=== PATIENT | female | born 1940 | race Caucasian/White ===

== ENCOUNTER 2016-08-29 23:53 | Inpatient (IN) | payer MEDICARE ==
[2016-08-29] MEDS ORDERED: TUSSIONEX 5 ML ORAL SYRINGE PO ONE (23:58)
[2016-08-29] MEDS ORDERED: Albuterol/Ipratropium Neb 3 ML NEB NEB ONE (23:58)
--- NOTE | 2016-08-30 00:01 | EDPRACDOC ---
- General Information Chief Complaint: Dyspnea/Resp distress Stated Complaint: RESPIRATORY Time Seen by Provider: 08/29/16 23:55 Home Medications: Home Medications Pantoprazole Sodium [Protonix] 40 mg PO DAILY 07/21/12 Glimepiride [Amaryl] 4 mg PO BID(LAISHA) 08/30/13 Nitroglycerin [Nitrostat] 0.4 mg SL Q5MX3 PRN 08/22/14 Albuterol Sulfate [Proventil Hfa] 2 puff INH Q6H PRN 09/14/14 Albuterol/Ipratropium Neb [Duoneb] 3 ml NEB Q6H PRN 09/14/14 Folic Acid 0.8 mg PO DAILY 09/14/14 Insulin Detemir [Levemir Flextouch] 20 units SQ HS 09/14/14 Levothyroxine Sodium [Synthroid] 25 mcg PO DAILY 09/14/14 Vitamins, Multiple [Unicap] 1 cap PO DAILY 09/14/14 Furosemide [Lasix] 80 mg PO BID #60 tablet 05/28/15 Escitalopram Oxalate [Lexapro] 10 mg PO DAILY 06/12/15 [place]-3 Fatty Acids/Fish Oil [Fish Oil 1,000 mg Capsule] 1 each PO DAILY Rivaroxaban [Xarelto] 15 mg PO DAILYWM 06/12/15 Nystatin 1 applic TOP TID #1 tube 09/12/15 Lisinopril [Prinivil] 2.5 mg PO DAILY #30 tablet 01/04/16 Alprazolam [Xanax] 0.5 mg PO HS 02/07/16 Gabapentin [Neurontin] 100 mg PO TID PRN 02/07/16 Hydrocodone Bit/Acetaminophen [[place] 5-325 Tablet] 1 each PO Q4H #10 tab Levetiracetam [Keppra] 500 mg PO BID 02/07/16 Metoprolol Succinate 50 mg PO HS 02/07/16 Simvastatin [Zocor] 20 mg PO DAILY 02/07/16 Vitamin E 400 unit PO DAILY 02/07/16 Clopidogrel Bisulfate [Plavix] 1 PO DAILY 08/09/16 Magnesium Oxide [Magnesium] 400 mg PO BID #60 tablet 08/09/16 Potassium Chloride 20 meq PO BID #120 tablet.er 12/11/16 Allergies/Adverse Reactions: Allergies Allergy/AdvReac Type Severity Reaction Status Date / Time cephalexin monohydrate Allergy Unknown/See Verified 08/09/16 03:50 [From Keflex] Comments codeine Allergy Itching Verified 08/09/16 03:50 moxifloxacin HCl Allergy Anaphylaxis Verified 08/09/16 03:50 [From Avelox] * Sulfa (Sulfonamide Allergy Unknown Verified 08/09/16 03:50 Antibiotics) sulfamethoxazole Allergy Unknown Verified 08/09/16 03:50 [From Bactrim] trimethoprim Allergy Unknown/See Verified 08/09/16 03:50 Comments - History of Present Illness HPI: PATIENT PRESENTS C/O COUGH AND CONGESTION FOR DAYS. NOW WITH LEFT FLANK PAIN- WORSE WITH COUGH. SUBJECTIVE FEVERS. HX OD COPD. USING INHALER. COUGH PRODUCTIVE OF WHITE SPUTUM Shortness of Breath: Moderate Relevant History: Reports: COPD Cough: Reports: Productive, White Rhinorrhea: Reports: None Ear Symptoms: Reports: None SOB Worsens with: Reports: Exertion, Coughing SOB Improves with: Reports: Nothing Associated Signs and symptoms: Reports: Cough, Fever. Denies: Sore Throat, Vomiting, AMS ED Past Medical History - History Reviewed Yes Nurses notes reviewed and agree except as marked Travel Outside of [place] in the Last 3 Months?: No - Patient Medical History Neurological History: Reports: Cerebrovascular Accident (May 2013 involving right MCA territory) Cardiac History: Reports: Coronary Artery Disease, Atrial Fibrillation (Chronic chads 2 score equals 7. On Xarelto.), Hypertension, Congestive Heart Failure ( ECHO 07/2015: EF 35%. Systolic. Also depressed RV function.), Heart Attack, Cardiac Catheterization, CABG (2013 1 vessel saphenous vein graft and repair LV rupture), Hypercholesterolemia, Cardiomyopathy (and elevated pulmonary artery pressure at 36 mmHg.), Valvular Heart Disease (Moderate Mitral regurgitation.) Respiratory History: Reports: Asthma, COPD GI/ History: Reports: Renal Disease (CKD. Baseline Cr 1.2 to 1.7.), Renal Failure, Urinary Tract Infection, Gastroesophageal Reflux Musculoskeletal History: Reports: Arthritis Psychological History: Reports: Depression, Anxiety. Denies: Substance Use Disorder Systemic History: Reports: Cancer (SKIN), Anemia, Diabetes (Type 2), Hyperthyroidism Surgical History: Reports: Cholecystectomy, CABG (2013 1 vessel saphenous vein graft and repair LV rupture), Hysterectomy, Cardiac Catheterization, Tonsillectomy/Adnoidectomy - Family Medical History Reports: Hypertension, Diabetes (Mother and Father. MGM.), Cancer, Stroke, Cardiac Disorders (Mother: [place] early. Brother, sister, niece all with MIs.) - Social Medical History Smoking Status: Former smoker (Quit 2002. Previously 2-3 ppd. Started 31yo.) Social History: Denies: Substance Use Disorder ETOH: None Substance Abuse: None Lives With: Family Lives In: Home EDM Review of Systems - Review of Systems ROS Negative Except as Marked: Yes All systems reviewed and were negative except as marked Constitutional: No Symptoms Reported. negative: Fever, Chills, Weakness, Fatigue, Loss of Appetite Eyes: No Symptoms Reported. negative: Redness, Blurred Vision, Double Vision, Discharge, Pain, Light Sensitive, Photophobia Ears: No Symptoms Reported. negative: Pain, Hearing Loss, Drainage, Ear Pulling Throat: No Symptoms Reported. negative: Pain, Swelling Nose: No Symptoms Reported. negative: Congestion, Bleeding, Discharge, Injection, Swelling, Deformity, Ecchymosis, Tender, Abrasion, Laceration Mouth: No Symptoms Reported. negative: Pain, Drooling Respiratory: Cough, Shortness of Breath. negative: Barky Cough, Brassy Cough, Hemoptysis, Wheezing Cardiovascular: No Symptoms Reported. negative: Chest Pain, Palpitations, Syncope, Edema, Orthopnea, PND, Skin Mottling, Cyanosis Gastrointestinal: No Symptoms Reported. negative: Pain, Constipation, Nausea, Vomiting, Diarrhea, Melena, Formula Intolerance Genitourinary: No Symptoms Reported. negative: Dysuria, Hematuria, Frequency, Discharge, Bleeding, Testicular Pain, Neurological: No Symptoms Reported. negative: Headache, Dizziness, Seizure, Numbness, Weakness, Speech Difficulty, Gait Difficulty Musculoskeletal: No Symptoms Reported. negative: Neck, Chestwall, Ribs, Back, Shoulder, Arm, Elbow, Forearm, Wrist, Hand, Pelvis, Hip, Femur, Knee, Leg, Ankle , Foot Integumentary: No Symptoms Reported. negative: Itching, Rash, Bruising, Wound Allergic/Immunologic: No Symptoms Reported. negative: Hives, Itching Hematologic: No Symptoms Reported. negative: Lymphadenopathy, Easy Bruising, Easy Bleeding Endocrine: No Symptoms Reported. negative: Weight Gain, Weight Loss Psychiatric: No Symptoms Reported. negative: Anxiety, Depression, Hallucinations, Insomnia, Suicidal - Physical Exam Constitutional: Alert (Awake), Distress (M ILD) Oriented to: Time, Person, Place Last recorded Vital Signs: Oxygen Pulse Oxygen Saturation O2 Device Oxygen Flow Rate Fraction of Inspired Oxygen ( FIO2) - HEENT Head: Normal ( normocephalic) Eye Exam: Normal (PERRL, EOMI, Sclera white) Oropharynx: Normal (Pharynx:Moist without exudate,Gums-no swelling) Tympanic Membrane: Normal ENT EAC: Normal TMJ: Normal Nose: No Symptoms Reported (septum midline) Neck: Normal (FROM, trachea at midline) - Respiratory/Cardiovascular Respiratory: Diminished, Wheezes Cardiovascular: Tachycardia - GI Auscultation: Normal (NABS) Palpation: Normal (Soft,No rebound or guarding, non distended) Tenderness: Non tender Varela's Sign: Negative - Musculoskeletal Back: Normal (Non-Tender) Extremities: Normal (Normal tone, Pulses 2+ No cyanosis or edema, FROM) - Integumentary Skin: Normal, Warm, Dry Lymphatics: Normal (no adenopathy) - Neurologic Memory Impaired: Normal Motor Function: Normal (Normal tone, Pulses 2+ No cyanosis or edema, FROM) Cranial Nerve: Normal (CN II-X11 intact sensation, strength 5/5) Cerebellar: Normal Mood Description: Normal Perception: Normal ED SOB MDM - Results Result Diagrams: 08/30/16 00:20 08/30/16 00:20 - EKG EKG #1 EKG Time: 00:21 -: Yes EKG interpreted by me Rate: bpm: 108 Abrams: Normal Rhythm: ST, PVCs Block: IVCD Hypertrophy: None ST: Normal - Departure Yes I personally saw and evaluated the patient. Disposition: Admit IP To This Hospital Condition: Fair Final Diagnosis: Hypoxia Left lower lobe pneumonia Qualifiers: Pneumonia type: due to unspecified organism Qualified Code(s): J18.1 - Lobar pneumonia, unspecified organism Education/Counseling Given To: Patient Education/Counseling Given Regarding: Diagnosis, Treatment, Prognosis Decision to Admit Time: 01:30 Decision to admit date: 08/30/16 Decision to admit: from ED - Physician Consulted Hospitalist Time Called: 01:31 Provider Called: Mateo Lloyd Time Agricultural Specialist Returned Call: 01:31
[2016-08-30 00:17] LABS: ALLEN'S TEST PASS; BEb 10.3 (+/- 2); TCO2 36.5 MMOL/L (23-27)
[2016-08-30 00:18] LABS: ABG Draw Site Left Radial; ABG Draw Tech BKL
[2016-08-30 00:40] LABS: AUTOMATED EOSINOPHIL 0.3 % (0-5); MPV 8.5 fL (7.4-10.4)
[2016-08-30 00:50] LABS: AUTOMATED BASOPHIL 0.6 % (0-2); AUTOMATED LYMPH 12.5 % (17-44); AUTOMATED MONOCYTE 8.5 % (3-10); AUTOMATED NEUTROPHIL 78.1 % (45-76); BLOOD UREA NITROGEN 44 MG/DL (7-17); CALC CORRECTED 9.3 MG/DL (8.4-10.2); CALCULATED OSMOLALITY 279 MOs/Kg (270-290); CHLORIDE 92 mEq/L (98-107); GLUCOSE 179 MG/DL (70-99); SODIUM LEVEL 137 mEq/L (137-146); TOTAL PROTEIN 7.1 G/DL (6.3-8.2)
[2016-08-30 00:57] LABS: PARTIAL THROMB. TIME 32.8 SEC (22-35); PT-INR 1.3
--- NOTE | 2016-08-30 01:11 | DIRPT ---
CLINICAL DATA: Acute onset of cough and congestion. Initial encounter. EXAM: CHEST 2 VIEW COMPARISON: Chest radiograph and CTA of the chest performed 08/09/2016 FINDINGS: The lungs are well-aerated. Mild vascular congestion is noted. Mild patchy bibasilar and left midlung opacities raise concern for mild pneumonia. No pleural effusion or pneumothorax is seen. The heart is borderline normal in size. The patient is status post median sternotomy. No acute osseous abnormalities are seen. IMPRESSION: Mild vascular congestion noted. Mild patchy bibasilar and left mid lung opacities raise concern for mild pneumonia. Electronically Signed By: Ronny Lowe M.D. On: 08/30/2016 01:08
[2016-08-30] MEDS ORDERED: AZITHROMYCIN 250 MG TAB PO ONE (01:31)
[2016-08-30] MEDS ORDERED: PIPERACILLIN AND TAZOBACTAM 4.5 GM in D5W 100 ML IV ONE (01:57)
--- NOTE | 2016-08-30 01:59 | HISTPHYS ---
- Chief Complaint shortness of breath - History of Present Illness PRIMARY CARE PROVIDER: Dr. Jennifer Hoskins OIL EXTRACTOR: Dr. Robles HPI: The patient is a 76 yo woman with atrial fibrillation who presents with shortness of breath. She was recently in the hospital under observation about 2 weeks ago due to chest pain; she was ruled out for [place] and had a negative stress test. She does not have any chest pain now. Onset: a few days ago. Duration: intermittent. Character: can't get a good breath. Alleviated by: Nothing. Exacerbated by: Nothing. Associated Symptoms: Cough productive of white sputum. Wheezing. Had chills but no fever. No diaphoresis. Patient reports difficulty walking due to generalized weakness in legs. No other symptoms. Treatments: none at home except usual medications. - Medical History Cardiac History: Reports: Coronary Artery Disease, Atrial Fibrillation (Chronic chads 2 score equals 7. On Xarelto.), Hypertension, Congestive Heart Failure ( ECHO 07/2015: EF 35%. Systolic. Also depressed RV function.), Heart Attack, Cardiac Catheterization, CABG (2013 1 vessel saphenous vein graft and repair LV rupture), Hypercholesterolemia, Cardiomyopathy (and elevated pulmonary artery pressure at 36 mmHg.), Valvular Heart Disease (Moderate Mitral regurgitation.) Respiratory History: Reports: Asthma, COPD GI/ History: Reports: Renal Disease (CKD. Baseline Cr 1.2 to 1.7.), Renal Failure, Urinary Tract Infection, Gastroesophageal Reflux Musculoskeletal History: Reports: Arthritis Systemic History: Reports: Cancer (SKIN), Anemia, Diabetes (Type 2), Hyperthyroidism Neurological History: Reports: Cerebrovascular Accident (May 2013 involving right MCA territory) Psychological History: Reports: Depression, Anxiety. Denies: Substance Use Disorder - Surgical History Reports: Cholecystectomy, CABG (2013 1 vessel saphenous vein graft and repair LV rupture), Hysterectomy, Cardiac Catheterization, Tonsillectomy/Adnoidectomy - Medictions/Allergies Allergies cephalexin monohydrate [From Keflex] Allergy (Verified 08/09/16 03:50) Unknown/See Comments codeine Allergy (Verified 08/09/16 03:50) Itching moxifloxacin HCl [From Avelox] Allergy (Verified 08/09/16 03:50) Anaphylaxis* Sulfa (Sulfonamide Antibiotics) Allergy (Verified 08/09/16 03:50) Unknown sulfamethoxazole [From Bactrim] Allergy (Verified 08/09/16 03:50) Unknown trimethoprim Allergy (Verified 08/09/16 03:50) Unknown/See Comments Current Medication List: Reviewed Home Medications Pantoprazole Sodium [Protonix] 40 mg PO DAILY 07/21/12 Glimepiride [Amaryl] 4 mg PO BID(LAISHA) 08/30/13 Nitroglycerin [Nitrostat] 0.4 mg SL Q5MX3 PRN 08/22/14 Albuterol Sulfate [Proventil Hfa] 2 puff INH Q6H PRN 09/14/14 Albuterol/Ipratropium Neb [Duoneb] 3 ml NEB Q6H PRN 09/14/14 Folic Acid 0.8 mg PO DAILY 09/14/14 Insulin Detemir [Levemir Flextouch] 20 units SQ HS 09/14/14 Levothyroxine Sodium [Synthroid] 25 mcg PO DAILY 09/14/14 Vitamins, Multiple [Unicap] 1 cap PO DAILY 09/14/14 Furosemide [Lasix] 80 mg PO BID #60 tablet 05/28/15 Escitalopram Oxalate [Lexapro] 10 mg PO DAILY 06/12/15 [place]-3 Fatty Acids/Fish Oil [Fish Oil 1,000 mg Capsule] 1 each PO DAILY Rivaroxaban [Xarelto] 15 mg PO DAILYWM 06/12/15 Nystatin 1 applic TOP TID #1 tube 09/12/15 Lisinopril [Prinivil] 2.5 mg PO DAILY #30 tablet 01/04/16 Alprazolam [Xanax] 0.5 mg PO HS 02/07/16 Gabapentin [Neurontin] 100 mg PO TID PRN 02/07/16 Hydrocodone Bit/Acetaminophen [[place] 5-325 Tablet] 1 each PO Q4H #10 tab Levetiracetam [Keppra] 500 mg PO BID 02/07/16 Metoprolol Succinate 50 mg PO HS 02/07/16 Simvastatin [Zocor] 20 mg PO DAILY 02/07/16 Vitamin E 400 unit PO DAILY 02/07/16 Clopidogrel Bisulfate [Plavix] 1 PO DAILY 08/09/16 Magnesium Oxide [Magnesium] 400 mg PO BID #60 tablet 08/09/16 Potassium Chloride 20 meq PO BID #120 tablet.er 08/09/16 - Family History Reports: Hypertension, Diabetes (Mother and Father. MGM.), Cancer, Stroke, Cardiac Disorders (Mother: [place] early. Brother, sister, niece all with MIs.) - Social History Smoking Status: Former smoker (Quit 2002. Previously 2-3 ppd. Started 31yo.) Social History: Denies: Alcohol Use, Substance Use Disorder - Review of Systems GENERAL: Had chills but no fever. No diaphoresis. Positive for fatigue/malaise. HEENT: No ear pain or discharge. No nasal discharge or bleeding. No throat pain or swelling. No eye pain or eye redness. RESPIRATORY: Cough, wheezing, and shortness of breath. CARDIOVASCULAR: No chest pain or palpitations. GI: No abdominal pain, nausea, vomiting, diarrhea, constipation, or bloody stool. NEUROLOGICAL: No headache or focal weakness except bilateral leg weakness. INTEGUMENT: no rashes, itching, or lesions. LYMPHATIC SYSTEM: no lymph node swelling or pain. MUSCULOSKELETAL: no new pain or joint swelling. GENITOURINARY: No dysuria or hematuria. ENDOCRINE: No polyuria or polydipsia. HEME: No chronic anemia, bleeding, or easy bruising. - Physical Exam Vital Signs: Initial Vitals Temperature 99.3 F 08/29/16 23:59 Pulse Rate 108 08/29/16 23:59 Respiratory Rate 18 08/29/16 23:59 Blood Pressure 139/60 08/29/16 23:59 Pulse Oxygen Saturation 88 L 08/29/16 23:59 Weight: 102 kg Height: 5 feet 7 inches BMI: 35.2 - Other Exam Other Exam Findings: GENERAL: Ill-appearing, well nourished, in acute distress. HEENT: Normocephalic, atraumatic; pupils equal and round. Nares patent, without discharge or bleeding. No oropharyngeal lesions or erythema. Mucous membranes are dry. NECK: is supple, no masses, trachea midline. RESPIRATORY: Clear to auscultation bilaterally. Chest wall movements are symmetric. No use of accessory muscles to breathe. Minimal scattered wheezing. Decreased breath sounds in the bases bilaterally. No rales. Faint rhonchi. CARDIOVASCULAR: Normal S1, S2. Murmur 3/6 systolic. Irregular. No rubs, or gallops. PMI non-displaced. Carotids: no carotid bruits. Mild tachycardia. DP pulses 2+ bilaterally. GI: soft, nontender, non-distended, normal active bowel sounds. No hepatosplenomegaly. INTEGUMENT: Clean, dry, and intact. No rashes. MUSCULOSKELETAL: Moving all extremities. No cyanosis. No clubbing. Edema: 1+ lower extremity edema bilaterally. NEUROLOGICAL: Cranial nerves 2-12 grossly intact. Motor 4/5 throughout upper extremities, and 2+ to 3/5 in the lower extremities, symmetric. Reflexes: 2+ bilaterally. Babinski: toes downgoing on right and minimally upgoing on the left. Intact Finger to nose. Sensory grossly intact to light touch. Intact rapid alternating movements bilaterally. No pronator drift. PSYCHIATRIC: Fully oriented. Frequently somnolent. Frequently falling asleep during questions and commands. LYMPHATIC: No cervical lymphadenopathy. No supraclavicular lymphadenopathy. - Lab Results Laboratory Tests 08/29/16 08/30/16 08/30/16 00:10 00:20 00:20 WBC 15.3 H RBC 3.66 L Hgb 11.1 L Hct 33.6 L MCV 92 MCH 30.2 MCHC 32.9 L RDW 15.7 H Plt Count 228 MPV 8.5 Neut % (Auto) 78.1 H Lymph % (Auto) 12.5 L [place] % (Auto) 8.5 Eos % (Auto) 0.3 Baso % (Auto) 0.6 Absolute Neuts (auto) 11.93 H Absolute Lymphs (auto) 1.84 PT INR APTT Puncture Site Left radial pH 7.490 H pCO2 46.0 H pO2 58.0 L HCO3 35.1 H Total CO2 36.5 H Base Excess 10.3 H FiO2 % Ra Specimen Drawn By Bkl Sodium 137 Potassium 3.5 Chloride 92 L Carbon Dioxide 35 H Anion Gap 14 BUN 44 H Creatinine 1.50 H Estimated GFR (MDRD) 34 L Glucose 179 H Calculated Osmolality 279 Lactic Acid Calcium 9.0 Corrected Calcium 9.3 Total Bilirubin 1.2 AST 18 ALT 24 Alkaline Phosphatase 61 Troponin I 0.03 [id number]-M-Vavnmakgvqx Pept 3680 H Total Protein 7.1 Albumin 3.7 08/30/16 08/30/16 00:20 00:20 WBC RBC Hgb Hct MCV MCH MCHC RDW Plt Count MPV Neut % (Auto) Lymph % (Auto) [place] % (Auto) Eos % (Auto) Baso % (Auto) Absolute Neuts (auto) Absolute Lymphs (auto) PT 13.1 H INR 1.3 APTT 32.8 Puncture Site pH pCO2 pO2 HCO3 Total CO2 Base Excess FiO2 % Specimen Drawn By Sodium Potassium Chloride Carbon Dioxide Anion Gap BUN Creatinine Estimated GFR (MDRD) Glucose Calculated Osmolality Lactic Acid 1.6 Calcium Corrected Calcium Total Bilirubin AST ALT Alkaline Phosphatase Troponin I Vcf-E-Jcaghpharrz Pept Total Protein Albumin - Diagnostic Findings DIAGNOSTIC DATA: EK bpm. Atrial fibrillation with occasional PVCs. Inferior infarct, age undetermined. Cannot rule out anterior infarct, age undetermined. T-wave inversion in leads 3, AVF. Flat T-wave in leads 1, 2, V4, V5. Reviewed EKG personally. IMAGING: Chest x-ray, viewed personally: EXAM: CHEST 2 VIEW COMPARISON: Chest radiograph and CTA of the chest performed 08/09/2016 FINDINGS: The lungs are well-aerated. Mild vascular congestion is noted. Mild patchy bibasilar and left midlung opacities raise concern for mild pneumonia. No pleural effusion or pneumothorax is seen. The heart is borderline normal in size. The patient is status post median sternotomy. No acute osseous abnormalities are seen. IMPRESSION: Mild vascular congestion noted. Mild patchy bibasilar and left mid lung opacities raise concern for mild pneumonia. - Assessment (1) Bacterial pneumonia J15.9 - UNSPECIFIED BACTERIAL PNEUMONIA Acute Present on Admission: Yes Pneumonia. Severe. Requiring continuous oxygen support. Type: Community acquired pneumonia is most likely, but she could also have healthcare associated pneumonia because she was in the hospital within the last month. Criteria for diagnosis: Chest x-ray suggestive of pneumonia. Likely bacterial. Could be a Gram-negative bacteria. Plan: Sputum culture has been ordered. Treat with IV Zosyn to cover for possible hospital-acquired pneumonia and also because the patient has numerous allergies and our medication options are limited. Monitor oxygen saturation levels. (2) Hypoxia R09.02 - HYPOXEMIA Acute Present on Admission: Yes Plan: Place patient on oxygen by nasal cannula. Increase to Ventimask if no improvement. Monitor oxygen saturation levels. (3) COPD exacerbation J44.1 - CHRONIC OBSTRUCTIVE PULMONARY DISEASE W (ACUTE) EXACERBATION Acute Present on Admission: Yes COPD may also be playing a role in the patient's shortness of breath; however, the main source of her respiratory distress is her pneumonia. Plan: Nebs of Duoneb q 6 hours scheduled and albuterol q 2 hours prn. Sputum culture ordered. IV Zosyn. IV methylprednisolone. Continuous oxygen support. (4) Atrial fibrillation I48.91 - UNSPECIFIED ATRIAL FIBRILLATION Chronic Present on Admission: Yes Currently rate controlled. Plan: Continue metoprolol. Continue Xarelto. (5) Type 2 diabetes mellitus with hyperglycemia E11.65 - TYPE 2 DIABETES MELLITUS WITH HYPERGLYCEMIA Acute Present on Admission: Yes Qualifiers: Diabetes mellitus manager terminal insulin use: with [facility] use Qualified Code( s): E11.65 - Type 2 diabetes mellitus with hyperglycemia; Z79.4 - assisted ( current) use of insulin Plan: Hold oral diabetes medications. Check fingerstick blood sugars q ac and hs. Sliding scale insulin. A1c on 08/09/2016 was 8.8, and urine microalbumin on the same date was 4.1. Case Care Discussed with: Patient, Nursing Staff Total Time: 60 min
[2016-08-30] MEDS ORDERED: GUAIFEN 100 MG-DEXTROMETH 10 MG PER 5 ML PO PRN (05:07)
[2016-08-30] MEDS ORDERED: BISACODYL 5 MG TAB PO PRN (05:07)
[2016-08-30] MEDS ORDERED: GLUCOSE (ORAL GEL) 15 GM TUBE PO PRN (05:07)
[2016-08-30] MEDS ORDERED: SENNA CONCENTRATE TAB PO PRN (05:07)
[2016-08-30] MEDS ORDERED: PROMETHAZINE 25 MG/ML VIAL IV PRN (05:07)
[2016-08-30] MEDS ORDERED: ONDANSETRON HCL 4 MG/2 ML VIAL IV PRN (05:07)
[2016-08-30] MEDS ORDERED: GLUCAGON 1 MG VIAL SQ PRN (05:07)
[2016-08-30] MEDS ORDERED: ALBUTEROL 0.083% 3 ML NEB NEB PRN (05:07)
[2016-08-30] MEDS ORDERED: SIMETHICONE 80 MG TAB PO PRN (05:07)
[2016-08-30] MEDS ORDERED: BENZONATATE 100 MG PERLES PO PRN (05:07)
[2016-08-30] MEDS ORDERED: TEMAZEPAM 15 MG CAP PO PRN (05:07)
[2016-08-30] MEDS ORDERED: ACETAMINOPHEN 325 MG SUPP PR PRN (05:07)
[2016-08-30] MEDS ORDERED: DEXTROSE 25 GM/50 ML PFS IV PRN (05:07)
[2016-08-30] MEDS: NS 1,000 ML IV SCH (05:49)
[2016-08-30] MEDS: METHYLPREDNISOLONE 125 MG/2 ML VIAL IV SCH ×3 (06:01→20:59)
[2016-08-30] MEDS: PANTOPRAZOLE 40 MG TAB PO SCH (06:01)
[2016-08-30] MEDS: REGULAR INSULIN 100 UNITS/ML - 3 ML VIAL SQ SCH ×5 (07:18→20:45)
--- NOTE | 2016-08-30 08:33 | GENMEDPROG ---
Chief Complaint: Pneumonia Subjective Note: Doing well, has no acute complaints. Resting comfortably in her bed on nasal cannula oxygen. Notes Reviewed: Yes Events from last night noted and discussed with Clinical Staff Current Medication List: Reviewed Currently: Reports: Cough, Wheezing - Physical Examination Vital Signs and I&O: Last Vital Signs Temp 98.5 F 08/30/16 06:00 Pulse 93 08/30/16 06:09 Resp 18 08/30/16 06:00 BP 127/60 08/30/16 06:00 Pulse Ox 96 08/30/16 06:00 Oxygen Pulse Oxygen Saturation 96 O2 Device Nasal Cannula Oxygen Flow Rate 2 Fraction of Inspired Oxygen ( FIO2) Intake & Output 08/28/16 08/29/16 08/30/16 08/31/16 06:59 06:59 06:59 06:59 Intake Total 300 Balance 300 Patient's weight 104.689 kg General: Alert, Oriented x3, No acute distress, Well appearing, Well nourished, Other (Normal and appropriate affect) HEENT: EOMI (Sclera white) Neck: Normal Trachea alignment, Normal inspection Lymphatics: Normal (no adenopathy) Respiratory: Diminished, Wheezes Cardiovascular: Regular rate, No Gallops,Rubs/Murmurs GI: Normal bowel sounds, Soft, Non tender (non distended) Extremities/Musculoskeletal: Other (Normal Tone). negative: Edema, Cyanosis Skin: No rashes, No significant lesion Neurological: Cranial Nerves (II-XII intact) Psych/Mental Status: Normal Affect (Fully oriented, [place] and appropriate affect ) Lab/DI/Studies Reviewed: Laboratory Tests 08/29/16 08/30/16 08/30/16 00:10 00:20 00:20 WBC 15.3 H Hgb 11.1 L pH 7.490 H pCO2 46.0 H pO2 58.0 L Potassium 3.5 BUN 44 H Creatinine 1.50 H Troponin I 0.03 - Assessment (1) Bacterial pneumonia Acute J15.9 - UNSPECIFIED BACTERIAL PNEUMONIA Comment/Plan: Pneumonia. Severe. Requiring continuous oxygen support. Type: Community acquired pneumonia is most likely, but she could also have healthcare associated pneumonia because she was in the hospital within the last month. Criteria for diagnosis: Chest x-ray suggestive of pneumonia. Likely bacterial. Could be a Gram-negative bacteria. Plan: Sputum culture has been ordered. Treat with IV Zosyn to cover for possible hospital-acquired pneumonia and also because the patient has numerous allergies and our medication options are limited. Monitor oxygen saturation levels. (2) COPD exacerbation Acute J44.1 - CHRONIC OBSTRUCTIVE PULMONARY DISEASE W (ACUTE) EXACERBATION Comment/Plan: COPD may also be playing a role in the patient's shortness of breath; however, the main source of her respiratory distress is her pneumonia. Plan: Nebs of Duoneb q 6 hours scheduled and albuterol q 2 hours prn. Sputum culture ordered. IV Zosyn. IV methylprednisolone. Continuous oxygen support. (3) Hypoxia Acute R09.02 - HYPOXEMIA (4) Left lower lobe pneumonia Acute J18.1 - LOBAR PNEUMONIA, UNSPECIFIED ORGANISM Qualifiers: Pneumonia type: due to unspecified organism Qualified Code(s): J18.1 - Lobar pneumonia, unspecified organism - Plan Continue present care, treating for community-acquired pneumonia and COPD exacerbation.
[2016-08-30] MEDS: FUROSEMIDE 80 MG TAB PO SCH ×2 (08:44→18:30)
[2016-08-30] MEDS: LISINOPRIL 2.5 MG TAB PO SCH (08:45)
[2016-08-30] MEDS: ESCITALOPRAM OXALATE 10 MG TAB PO SCH (08:47)
[2016-08-30] MEDS: CLOPIDOGREL 75 MG TAB PO SCH (08:47)
[2016-08-30] MEDS: LEVOTHYROXINE 25 MCG (0.025 MG) TAB PO SCH (08:47)
[2016-08-30] MEDS: PIPERACILLIN AND TAZOBACTAM 4.5 GM in D5W 100 ML IV SCH ×2 (08:47→18:29)
[2016-08-30] MEDS: ATORVASTATIN 80 MG TAB PO SCH (08:47)
[2016-08-30] MEDS: RIVAROXABAN 10 MG TAB PO SCH (08:47)
[2016-08-30] MEDS ORDERED: Vaccine Screening Complete SCH (09:00)
[2016-08-30] MEDS ORDERED: Non-Formulary Medication ITEM (Rivaroxaban [Xarelto] 15 MG) PO SCH (09:00)
[2016-08-30] MEDS: Albuterol/Ipratropium Neb 3 ML NEB NEB SCH ×3 (09:27→21:05)
[2016-08-30] MEDS: METOPROLOL (TOPROL-XL) 50 MG TAB PO SCH (21:00)
[2016-08-31] MEDS: Albuterol/Ipratropium Neb 3 ML NEB NEB SCH ×4 (00:58→19:16)
[2016-08-31] MEDS: PIPERACILLIN AND TAZOBACTAM 4.5 GM in D5W 100 ML IV SCH ×2 (03:12→08:48)
[2016-08-31] MEDS: NS 1,000 ML IV SCH (03:12)
[2016-08-31 03:43] LABS: MPV 8.7 fL (7.4-10.4)
[2016-08-31 03:51] LABS: BLOOD UREA NITROGEN 44 MG/DL (7-17); CALCIUM 8.8 MG/DL (8.4-10.2); CALCULATED OSMOLALITY 278 MOs/Kg (270-290); CHLORIDE 89 mEq/L (98-107); GLUCOSE 358 MG/DL (70-99); SODIUM LEVEL 131 mEq/L (137-146)
[2016-08-31] MEDS: METHYLPREDNISOLONE 125 MG/2 ML VIAL IV SCH ×3 (06:01→21:34)
[2016-08-31] MEDS: PANTOPRAZOLE 40 MG TAB PO SCH (06:01)
[2016-08-31] MEDS: REGULAR INSULIN 100 UNITS/ML - 3 ML VIAL SQ SCH ×4 (06:41→21:34)
[2016-08-31] MEDS: CLOPIDOGREL 75 MG TAB PO SCH (08:49)
[2016-08-31] MEDS: LEVOTHYROXINE 25 MCG (0.025 MG) TAB PO SCH (08:49)
[2016-08-31] MEDS: ESCITALOPRAM OXALATE 10 MG TAB PO SCH (08:49)
[2016-08-31] MEDS: ATORVASTATIN 80 MG TAB PO SCH (08:49)
[2016-08-31] MEDS: RIVAROXABAN 10 MG TAB PO SCH (08:50)
[2016-08-31] MEDS: LISINOPRIL 2.5 MG TAB PO SCH (08:50)
--- NOTE | 2016-08-31 09:54 | GENMEDPROG ---
Chief Complaint: Patient states that she used to smoke a long time ago. Subjective Note: States that her granddaughters shabbir lives with her and he smokes in her house and she does not want that. She has asked him to move out but he want. She thinks he is trying to take her money. She requests to go to [facility] for some skilled rehab prior to going home because she is concerned about her lung health with her granddaughters shabbir in the house. She is requesting assistance to try to rid him from her home. Notes Reviewed: Yes Events from last night noted and discussed with Clinical Staff Current Medication List: Reviewed Currently: Reports: Cough, Wheezing - Physical Examination Vital Signs and I&O: Last Vital Signs Temp 97.9 F 08/31/16 07:37 Pulse 88 08/31/16 07:37 Resp 18 08/31/16 07:37 BP 118/64 08/31/16 07:37 Pulse Ox 95 08/31/16 08:36 Oxygen Pulse Oxygen Saturation 95 O2 Device Nasal Cannula Oxygen Flow Rate 2 Fraction of Inspired Oxygen ( FIO2) Intake & Output 08/28/16 08/29/16 08/30/16 08/31/16 23:59 23:59 23:59 23:59 Intake Total 2272 1913 Output Total 250 1100 Balance 2021 813 Patient's weight 104.689 kg 106.866 kg General: Alert, Oriented x3, No acute distress, Well appearing, Well nourished, Other (Normal and appropriate affect) HEENT: EOMI (Sclera white) Neck: Normal Trachea alignment, Normal inspection Lymphatics: Normal (no adenopathy) Respiratory: Diminished, Wheezes Cardiovascular: Regular rate, No Gallops,Rubs/Murmurs GI: Normal bowel sounds, Soft, Non tender (non distended) Extremities/Musculoskeletal: Other (Normal Tone). negative: Edema, Cyanosis Skin: No rashes, No significant lesion Neurological: Cranial Nerves (II-XII intact) Psych/Mental Status: Normal Affect (Fully oriented, [place] and appropriate affect ) Lab/DI/Studies Reviewed: Laboratory Results - last 24 hr 08/30/16 08/30/16 08/30/16 11:20 17:06 20:19 WBC RBC Hgb Hct MCV MCH MCHC RDW Plt Count MPV Sodium Potassium Chloride Carbon Dioxide Anion Gap BUN Creatinine Estimated GFR (MDRD) Glucose POC Capillary Glucose 390 H 423 H* 397 H Calculated Osmolality Calcium 08/31/16 08/31/16 08/31/16 02:35 02:35 06:23 WBC 11.2 H RBC 3.33 L Hgb 10.2 L Hct 31.0 L MCV 93 MCH 30.6 MCHC 32.9 L RDW 15.7 H Plt Count 208 MPV 8.7 Sodium 131 L Potassium 3.9 Chloride 89 L Carbon Dioxide 29 Anion Gap 17 H BUN 44 H Creatinine 1.30 H Estimated GFR (MDRD) 40 L Glucose 358 H POC Capillary Glucose 276 H Calculated Osmolality 278 Calcium 8.8 - Assessment (1) Bacterial pneumonia Acute J15.9 - UNSPECIFIED BACTERIAL PNEUMONIA Comment/Plan: Pneumonia. Severe. Requiring continuous oxygen support. Type: Community acquired pneumonia is most likely, but she could also have healthcare associated pneumonia because she was in the hospital within the last month. Criteria for diagnosis: Chest x-ray suggestive of pneumonia. Likely bacterial. Could be a Gram-negative bacteria. Plan: Keflex allergy is very vague. Patient was confused when this information was recorded in our system. We have no record of her being unable to take Keflex. She has never been given a cephalosporin at our facility. Will give her a test dose of Rocephin today as this will be certainly much easier to dose then Zosyn at a facility. (2) COPD exacerbation Acute J44.1 - CHRONIC OBSTRUCTIVE PULMONARY DISEASE W (ACUTE) EXACERBATION Comment/Plan: COPD may also be playing a role in the patient's shortness of breath; however, the main source of her respiratory distress is her pneumonia. Plan: Nebs of Duoneb q 6 hours scheduled and albuterol q 2 hours prn. Sputum culture ordered. Changed to IV ceftriaxone IV methylprednisolone. Continuous oxygen support. Check ambulating O2 sats today for possible discharge with oxygen. (3) Hypoxia Acute R09.02 - HYPOXEMIA (4) Left lower lobe pneumonia Acute J18.1 - LOBAR PNEUMONIA, UNSPECIFIED ORGANISM Qualifiers: Pneumonia type: due to unspecified organism Qualified Code(s): J18.1 - Lobar pneumonia, unspecified organism Comment/Plan: See chest x-ray report - Plan Try ceftriaxone today. Check ambulating O2 sats. Possible discharge to skilled facility in a.m. per above. Disposition Plan: To skilled facility in a.m. Case Care Discussed with: Patient, Nursing Staff Education/Counseling Given To: Patient Education/Counseling Given Regarding: Diagnosis, Treatment, Prognosis, Follow Up , Disposition Plan Total Time: 45 minutes Critical Care: No Couseling Time (>50% in counseling/coordination): No
[2016-08-31] MEDS: FUROSEMIDE 80 MG TAB PO SCH ×2 (09:58→16:12)
[2016-08-31] MEDS: CEFTRIAXONE 1 GM in D5W 100 ML IV SCH (11:22)
[2016-08-31] MEDS ORDERED: DEXTROSE 25 GM/50 ML PFS IV PRN (17:03)
[2016-08-31] MEDS ORDERED: GLUCAGON 1 MG VIAL SQ PRN (17:03)
[2016-08-31] MEDS ORDERED: GLUCOSE (ORAL GEL) 15 GM TUBE PO PRN (17:03)
[2016-08-31] MEDS: METOPROLOL (TOPROL-XL) 50 MG TAB PO SCH (21:34)
[2016-09-01] MEDS: Albuterol/Ipratropium Neb 3 ML NEB NEB SCH ×2 (01:15→08:21)
[2016-09-01] MEDS: PANTOPRAZOLE 40 MG TAB PO SCH (04:22)
[2016-09-01] MEDS: METHYLPREDNISOLONE 125 MG/2 ML VIAL IV SCH (04:22)
[2016-09-01 05:37] VITALS: BMI 36.7
[2016-09-01] MEDS: REGULAR INSULIN 100 UNITS/ML - 3 ML VIAL SQ SCH ×4 (06:27→20:57)
[2016-09-01] MEDS: FUROSEMIDE 80 MG TAB PO SCH ×2 (08:33→18:37)
[2016-09-01] MEDS: LISINOPRIL 2.5 MG TAB PO SCH (08:33)
[2016-09-01] MEDS: ATORVASTATIN 80 MG TAB PO SCH (08:34)
[2016-09-01] MEDS: LEVOTHYROXINE 25 MCG (0.025 MG) TAB PO SCH (08:34)
[2016-09-01] MEDS: ESCITALOPRAM OXALATE 10 MG TAB PO SCH (08:34)
[2016-09-01] MEDS: CEFTRIAXONE 1 GM in D5W 100 ML IV SCH (08:34)
[2016-09-01] MEDS: RIVAROXABAN 10 MG TAB PO SCH (08:34)
[2016-09-01] MEDS: CLOPIDOGREL 75 MG TAB PO SCH (08:34)
[2016-09-01] MEDS: GLIMEPIRIDE 4 MG TAB PO SCH (08:51)
[2016-09-01] MEDS: METHYLPREDNISOLONE 40 MG/1 ML VIAL IV SCH ×2 (11:48→20:55)
--- NOTE | 2016-09-01 13:43 | GENMEDPROG ---
Chief Complaint: Patient having problems with elevated heart rate going from atrial fibrillation into atrial flutter all morning.. Subjective Note: 76-year-old female admitted to our facility with pneumonia and respiratory failure. He has been weaned off of her oxygen but continues to have problems with tachycardia. I suspect that this is due to her albuterol nebulizers. She did walk in the halls but had several episodes where her sats dropped to 88%. I do not believe she is ready for discharge home yet. Notes Reviewed: Yes Events from last night noted and discussed with Clinical Staff Current Medication List: Reviewed Currently: Reports: Cough, Wheezing - Physical Examination Vital Signs and I&O: Last Vital Signs Temp 97.7 F 09/01/16 11:39 Pulse 100 09/01/16 11:50 Resp 16 09/01/16 11:39 BP 99/58 L 09/01/16 11:39 Pulse Ox 92 09/01/16 12:00 Oxygen Pulse Oxygen Saturation 92 O2 Device Room Air Oxygen Flow Rate 2 Fraction of Inspired Oxygen ( FIO2) Intake & Output 08/29/16 08/30/16 08/31/16 09/01/16 23:59 23:59 23:59 23:59 Intake Total 2272 2873 500 Output Total 250 3930 3300 Balance 2021 1 -2799 Patient's weight 104.689 kg 106.866 kg 106.413 kg General: Alert, Oriented x3, No acute distress, Well appearing, Well nourished, Other (Normal and appropriate affect) HEENT: EOMI (Sclera white) Neck: Normal Trachea alignment, Normal inspection Lymphatics: Normal (no adenopathy) Respiratory: Diminished, Wheezes Cardiovascular: Regular rate, No Gallops,Rubs/Murmurs GI: Normal bowel sounds, Soft, Non tender (non distended) Extremities/Musculoskeletal: Other (Normal Tone). negative: Edema, Cyanosis Skin: No rashes, No significant lesion Neurological: Cranial Nerves (II-XII intact) Psych/Mental Status: Normal Affect (Fully oriented, [place] and appropriate affect ) Lab/DI/Studies Reviewed: Laboratory Results - last 24 hr 08/31/16 08/31/16 08/31/16 16:41 16:42 19:07 POC Capillary Glucose 402 H* 417 H* 403 H* 08/31/16 09/01/16 09/01/16 19:09 05:39 11:41 POC Capillary Glucose 394 H 337 H 395 H - Assessment (1) Bacterial pneumonia Acute J15.9 - UNSPECIFIED BACTERIAL PNEUMONIA Comment/Plan: Continue current antibiotic management. Patient still hypoxemic. (2) COPD exacerbation Acute J44.1 - CHRONIC OBSTRUCTIVE PULMONARY DISEASE W (ACUTE) EXACERBATION Comment/Plan: Continue treatment for CHRONIC OBSTRUCTIVE PULMONARY DISEASE with nebulizers antibiotics oxygen and steroids (3) Hypoxia Acute R09.02 - HYPOXEMIA (4) Left lower lobe pneumonia Acute J18.1 - LOBAR PNEUMONIA, UNSPECIFIED ORGANISM Qualifiers: Pneumonia type: due to unspecified organism Qualified Code(s): J18.1 - Lobar pneumonia, unspecified organism Comment/Plan: See chest x-ray report - Plan Patient still having episodes of desaturation will recheck ambulating O2 sats in a.m.. Not ready for discharge yet. Suspect should be better in a.m. and ready to go. Medical team conference was held on the patient discussion of diagnosis treatments plans and prognosis as well as disposition. In addition to myself the following team members were present nursing, physical therapy, speech therapy, occupational therapy, case management, social work, nutrition, mri ct tech , palliative care, and home health nursing. Input from each discipline was recieved and is incorporated in the plan of care in the medical record as well as in the plans in the progress notes. Disposition Plan: To skilled facility in a.m. hopefully Case Care Discussed with: Patient, Nursing Staff Education/Counseling Given To: Patient Education/Counseling Given Regarding: Diagnosis, Treatment, Prognosis, Disposition Plan Total Time: 45 minutes Critical Care: No Couseling Time (>50% in counseling/coordination): No
[2016-09-01] MEDS: REGULAR INSULIN 100 UNITS/ML - 3 ML VIAL IV SCH ×5 (14:47→23:22)
[2016-09-01] MEDS: LEVALBUTEROL 0.63 MG IN 3 ML NEB NEB SCH ×2 (14:53→19:16)
[2016-09-01] MEDS: METOPROLOL (TOPROL-XL) 50 MG TAB PO SCH (20:59)
[2016-09-02] MEDS: REGULAR INSULIN 100 UNITS/ML - 3 ML VIAL IV SCH ×11 (01:44→22:36)
[2016-09-02] MEDS: LEVALBUTEROL 0.63 MG IN 3 ML NEB NEB SCH ×4 (02:19→19:08)
[2016-09-02] MEDS: ACETAMINOPHEN 325 MG/TAB TABLET PO PRN (02:57)
[2016-09-02] MEDS: METHYLPREDNISOLONE 40 MG/1 ML VIAL IV SCH ×2 (05:07→17:08)
[2016-09-02] MEDS: PANTOPRAZOLE 40 MG TAB PO SCH (05:08)
[2016-09-02] MEDS: REGULAR INSULIN 100 UNITS/ML - 3 ML VIAL SQ SCH ×4 (05:10→20:26)
[2016-09-02] MEDS: GLIMEPIRIDE 4 MG TAB PO SCH (08:54)
[2016-09-02] MEDS: ATORVASTATIN 80 MG TAB PO SCH (08:55)
[2016-09-02] MEDS: CLOPIDOGREL 75 MG TAB PO SCH (08:55)
[2016-09-02] MEDS: LEVOTHYROXINE 25 MCG (0.025 MG) TAB PO SCH (08:55)
[2016-09-02] MEDS: ESCITALOPRAM OXALATE 10 MG TAB PO SCH (08:55)
[2016-09-02] MEDS: FUROSEMIDE 80 MG TAB PO SCH ×2 (08:55→17:04)
[2016-09-02] MEDS: LISINOPRIL 2.5 MG TAB PO SCH (08:56)
[2016-09-02] MEDS: RIVAROXABAN 10 MG TAB PO SCH (08:56)
[2016-09-02] MEDS: CEFTRIAXONE 1 GM in D5W 100 ML IV SCH (08:59)
[2016-09-02] MEDS ORDERED: Chloraseptic 6 OZ BOT PO PRN (10:27)
--- NOTE | 2016-09-02 10:31 | GENMEDPROG ---
Chief Complaint: less sob coughing up yellow phlegm Notes Reviewed: Yes Events from last night noted and discussed with Clinical Staff Current Medication List: Reviewed Currently: Reports: Cough, Wheezing DVT Prophylaxis: Yes - Physical Examination Vital Signs and I&O: Last Vital Signs Temp 97.4 F L 09/02/16 08:00 Pulse 89 09/02/16 08:00 Resp 18 09/02/16 08:00 BP 158/86 09/02/16 08:00 Pulse Ox 91 09/02/16 08:00 Oxygen Pulse Oxygen Saturation 91 O2 Device Room Air Oxygen Flow Rate 2 Fraction of Inspired Oxygen ( FIO2) Intake & Output 08/30/16 08/31/16 09/01/16 09/02/16 23:59 23:59 23:59 23:59 Intake Total 2272 2873 961 240 Output Total 250 3930 6200 1800 Balance 2 -1057 -5239 -1560 Patient's weight 104.689 kg 106.866 kg 106.413 kg 107.864 kg General: Alert, Oriented x3, No acute distress, Well appearing, Well nourished, Other (Normal and appropriate affect) HEENT: Normal, PERRLA, EOMI (Sclera white), Anicteric Sclera, Mucous membr. moist/pink Neck: Normal Trachea alignment, Normal inspection Lymphatics: Normal (no adenopathy) Respiratory: Diminished, Wheezes (occas). negative: Rales, Rhonchi Cardiovascular: Normal S1, No Gallops,Rubs/Murmurs, Normal S2, Irregular. negative: Regular rate and rhythm GI: Normal bowel sounds, Soft, Non tender (non distended) Extremities/Musculoskeletal: Swelling, Edema (trace), Other (Normal Tone). negative: Clubbing, Cyanosis Skin: No rashes, No significant lesion Neurological: Strength at 5/5 X4 ext, Cranial nerves 3-12 NL, Cranial Nerves (II -XII intact) Psych/Mental Status: Normal Affect (Fully oriented, Norla and appropriate affect ) Lab/DI/Studies Reviewed: 08/31/16 02:35 08/31/16 02:35 Laboratory Results - last 24 hr 09/01/16 09/01/16 09/01/16 11:41 13:50 16:09 POC Capillary Glucose 395 H 413 H* 309 H 09/01/16 09/01/16 09/02/16 19:01 20:53 05:07 POC Capillary Glucose 319 H 196 H 343 H - Assessment (1) Bacterial pneumonia Acute J15.9 - UNSPECIFIED BACTERIAL PNEUMONIA Comment/Plan: Bilat lower pneumonia. Continue roceph zithro. Patient still hypoxemic. (2) Atrial fibrillation Chronic I48.91 - UNSPECIFIED ATRIAL FIBRILLATION Qualifiers: Atrial fibrillation type: chronic Qualified Code(s): I48.2 - Chronic atrial fibrillation Comment/Plan: Currently rate controlled. Plan: Continue metoprolol. Continue Xarelto. (3) Chronic kidney disease Chronic N18.9 - CHRONIC KIDNEY DISEASE, UNSPECIFIED Qualifiers: Chronic kidney disease stage: stage 2 (mild) Qualified Code(s): N18.2 - Chronic kidney disease, stage 2 (mild) Comment/Plan: Monitor renal function avoid any nephrotoxins (4) Coronary artery disease Chronic I25.10 - ATHSCL HEART DISEASE OF [place] CORONARY ARTERY W/O ANG PCTRS Qualifiers: Coronary Disease-Associated Artery/Lesion type: [place] artery [place] vs. transplanted heart: [place] heart Associated angina: without angina Qualified Code(s): I25.10 - Atherosclerotic heart disease of [place] coronary artery without angina pectoris (5) Diabetes mellitus type 2, uncontrolled Chronic E11.65 - TYPE 2 DIABETES MELLITUS WITH HYPERGLYCEMIA Qualifiers: Diabetes mellitus buttermaker insulin use: with buttermaker use Laterality: bilateral Comment/Plan: Sliding scale insulin therapy in addition to the multiple other medication she is taking for glycemic control. (6) Diastolic CHF Chronic I50.30 - UNSPECIFIED DIASTOLIC (CONGESTIVE) HEART FAILURE Qualifiers: Congestive heart failure chronicity: acute Qualified Code(s): I50.31 - Acute diastolic (congestive) heart failure Comment/Plan: Echocardiogram done 2012 showed ejection fraction 55% but now her BNP is over 3500. I have switched to p.o. Lasix to IV. as her chest x-ray did show evidence of interstitial edema. (7) Hypertension Chronic I10 - ESSENTIAL (PRIMARY) HYPERTENSION Qualifiers: Hypertension type: essential hypertension Qualified Code(s): I10 - Essential (primary) hypertension Comment/Plan: Medications ordered for this. Disposition Plan: To home Case Care Discussed with: Patient, Nursing Staff Education/Counseling Given To: Patient Education/Counseling Given Regarding: Diagnosis Total Time: 37 min Critical Care: No Code: 64097 (12+)
[2016-09-02] MEDS ORDERED: INSULIN DETEMIR 100 UNITS/ML PEN SQ SCH (11:00)
[2016-09-02] MEDS: PROBIOTIC BLEND TAB PO SCH ×2 (11:24→17:07)
[2016-09-02] MEDS: AZITHROMYCIN 500 MG in D5W 250 ML IV SCH (11:24)
[2016-09-02] MEDS: MAGIC MOUTHWASH 180 ML ORAL SUSP PO SCH ×3 (17:05→20:27)
[2016-09-02] MEDS: INSULIN DETEMIR 100 UNITS/ML PEN SQ SCH (20:24)
[2016-09-02] MEDS: METOPROLOL (TOPROL-XL) 50 MG TAB PO SCH (20:26)
[2016-09-03] MEDS: REGULAR INSULIN 100 UNITS/ML - 3 ML VIAL IV SCH ×11 (00:09→19:40)
[2016-09-03] MEDS: LEVALBUTEROL 0.63 MG IN 3 ML NEB NEB SCH ×4 (01:02→19:13)
[2016-09-03 04:45] LABS: MPV 8.5 fL (7.4-10.4)
[2016-09-03] MEDS: GLIMEPIRIDE 4 MG TAB PO SCH (05:09)
[2016-09-03] MEDS: METHYLPREDNISOLONE 40 MG/1 ML VIAL IV SCH ×2 (05:09→16:58)
[2016-09-03] MEDS: PANTOPRAZOLE 40 MG TAB PO SCH (05:09)
[2016-09-03] MEDS: REGULAR INSULIN 100 UNITS/ML - 3 ML VIAL SQ SCH ×4 (05:09→19:51)
[2016-09-03 05:10] LABS: BLOOD UREA NITROGEN 59 MG/DL (7-17); CALCIUM 9.8 MG/DL (8.4-10.2); CALCULATED OSMOLALITY 290 MOs/Kg (270-290); CHLORIDE 92 mEq/L (98-107); GLUCOSE 288 MG/DL (70-99); SODIUM LEVEL 136 mEq/L (137-146)
[2016-09-03] MEDS: LISINOPRIL 2.5 MG TAB PO SCH (08:36)
[2016-09-03] MEDS: RIVAROXABAN 10 MG TAB PO SCH (08:36)
[2016-09-03] MEDS: CEFTRIAXONE 1 GM in D5W 100 ML IV SCH (08:36)
[2016-09-03] MEDS: MAGIC MOUTHWASH 180 ML ORAL SUSP PO SCH ×4 (08:36→19:41)
[2016-09-03] MEDS: FUROSEMIDE 80 MG TAB PO SCH ×2 (08:36→16:55)
[2016-09-03] MEDS: CLOPIDOGREL 75 MG TAB PO SCH (08:37)
[2016-09-03] MEDS: ESCITALOPRAM OXALATE 10 MG TAB PO SCH (08:37)
[2016-09-03] MEDS: ATORVASTATIN 80 MG TAB PO SCH (08:37)
[2016-09-03] MEDS: LEVOTHYROXINE 25 MCG (0.025 MG) TAB PO SCH (08:38)
--- NOTE | 2016-09-03 11:46 | GENMEDPROG ---
Chief Complaint: sleepy today less sob Notes Reviewed: Yes Events from last night noted and discussed with Clinical Staff Current Medication List: Reviewed Currently: Reports: Cough, Wheezing DVT Prophylaxis: Yes - Physical Examination Vital Signs and I&O: Last Vital Signs Temp 98.5 F 09/03/16 08:00 Pulse 81 09/03/16 08:00 Resp 20 09/03/16 08:00 BP 160/75 09/03/16 08:00 Pulse Ox 95 09/03/16 08:00 Oxygen Pulse Oxygen Saturation 95 O2 Device Room Air Oxygen Flow Rate 2 Fraction of Inspired Oxygen ( FIO2) Intake & Output 08/31/16 09/01/16 09/02/16 09/03/16 23:59 23:59 23:59 23:59 Intake Total 2873 961 1600 120 Output Total 3930 6200 3250 1400 Balance -8167 -5276 -3730 -1280 Patient's weight 106.866 kg 106.413 kg 107.864 kg 107.002 kg General: Alert, Oriented x3, No acute distress, Well appearing, Well nourished, Other (Normal and appropriate affect) HEENT: Normal, PERRLA, EOMI (Sclera white), Anicteric Sclera, Mucous membr. moist/pink Neck: Normal Trachea alignment, Normal inspection Lymphatics: Normal (no adenopathy) Respiratory: Diminished. negative: Rales, Rhonchi, Wheezes Cardiovascular: Normal S1, No Gallops,Rubs/Murmurs, Normal S2, Irregular. negative: Regular rate and rhythm GI: Normal bowel sounds, Soft, Non tender (non distended), No hepatospenomegaly , No masses Extremities/Musculoskeletal: Swelling, Edema (trace), Other (Normal Tone). negative: Clubbing, Cyanosis Skin: No rashes, No significant lesion Neurological: Strength at 5/5 X4 ext, Cranial nerves 3-12 NL, Cranial Nerves (II -XII intact) Psych/Mental Status: Normal Affect (Fully oriented, Norla and appropriate affect ) Lab/DI/Studies Reviewed: 09/03/16 03:50 09/03/16 03:50 Laboratory Results - last 24 hr 09/02/16 09/02/16 09/02/16 11:55 11:56 14:13 WBC RBC Hgb Hct MCV MCH MCHC RDW Plt Count MPV Sodium Potassium Chloride Carbon Dioxide Anion Gap BUN Creatinine Estimated GFR (MDRD) Glucose POC Capillary Glucose 407 H* 472 H* 396 H Calculated Osmolality Calcium 09/02/16 09/02/16 09/02/16 15:54 18:06 19:29 WBC RBC Hgb Hct MCV MCH MCHC RDW Plt Count MPV Sodium Potassium Chloride Carbon Dioxide Anion Gap BUN Creatinine Estimated GFR (MDRD) Glucose POC Capillary Glucose 300 H 295 H 344 H Calculated Osmolality Calcium 09/02/16 09/03/16 09/03/16 21:42 00:08 02:27 WBC RBC Hgb Hct MCV MCH MCHC RDW Plt Count MPV Sodium Potassium Chloride Carbon Dioxide Anion Gap BUN Creatinine Estimated GFR (MDRD) Glucose POC Capillary Glucose 319 H 349 H 279 H Calculated Osmolality Calcium 09/03/16 09/03/16 09/03/16 03:50 03:50 04:28 WBC 10.6 RBC 3.68 L Hgb 11.1 L Hct 33.8 L MCV 92 MCH 30.3 MCHC 33.0 RDW 15.5 H Plt Count 256 MPV 8.5 Sodium 136 L Potassium 4.4 Chloride 92 L Carbon Dioxide 35 H Anion Gap 13 BUN 59 H Creatinine 1.50 H Estimated GFR (MDRD) 34 L Glucose 288 H POC Capillary Glucose 300 H Calculated Osmolality 290 Calcium 9.8 09/03/16 09/03/16 09/03/16 06:05 07:51 09:46 WBC RBC Hgb Hct MCV MCH MCHC RDW Plt Count MPV Sodium Potassium Chloride Carbon Dioxide Anion Gap BUN Creatinine Estimated GFR (MDRD) Glucose POC Capillary Glucose 277 H 226 H 333 H Calculated Osmolality Calcium - Assessment (1) Bacterial pneumonia Acute J15.9 - UNSPECIFIED BACTERIAL PNEUMONIA Comment/Plan: Bilat lower pneumonia. Continue roceph zithro. Patient still hypoxemic. (2) Chronic kidney disease Chronic N18.9 - CHRONIC KIDNEY DISEASE, UNSPECIFIED Qualifiers: Chronic kidney disease stage: stage 2 (mild) Qualified Code(s): N18.2 - Chronic kidney disease, stage 2 (mild) Comment/Plan: Monitor renal function avoid any nephrotoxins (3) Coronary artery disease Chronic I25.10 - ATHSCL HEART DISEASE OF [place] CORONARY ARTERY W/O ANG PCTRS Qualifiers: Coronary Disease-Associated Artery/Lesion type: [place] artery [place] vs. transplanted heart: [place] heart Associated angina: without angina Qualified Code(s): I25.10 - Atherosclerotic heart disease of [place] coronary artery without angina pectoris (4) Diabetes mellitus type 2, uncontrolled Chronic E11.65 - TYPE 2 DIABETES MELLITUS WITH HYPERGLYCEMIA Qualifiers: Diabetes mellitus custodial insulin use: with long term care social worker use Laterality: bilateral Comment/Plan: Sliding scale insulin therapy in addition to the multiple other medication she is taking for glycemic control. (5) Diastolic CHF Chronic I50.30 - UNSPECIFIED DIASTOLIC (CONGESTIVE) HEART FAILURE Qualifiers: Congestive heart failure chronicity: acute Qualified Code(s): I50.31 - Acute diastolic (congestive) heart failure Comment/Plan: Echocardiogram done 2012 showed ejection fraction 55% but now her BNP is over 3500. I have switched to p.o. Lasix to IV. as her chest x-ray did show evidence of interstitial edema. (6) Hypertension Chronic I10 - ESSENTIAL (PRIMARY) HYPERTENSION Qualifiers: Hypertension type: essential hypertension Qualified Code(s): I10 - Essential (primary) hypertension Comment/Plan: Medications ordered for this. (7) Atrial fibrillation Chronic I48.91 - UNSPECIFIED ATRIAL FIBRILLATION Qualifiers: Atrial fibrillation type: chronic Qualified Code(s): I48.2 - Chronic atrial fibrillation Comment/Plan: Currently rate controlled. Plan: Continue metoprolol. Continue Xarelto. Disposition Plan: To home in am Case Care Discussed with: Patient, Nursing Staff, Resource Management Education/Counseling Given To: Patient, Family Member Education/Counseling Given Regarding: Diagnosis, Treatment Total Time: 39 min Critical Care: No Code: 43722 (12+)
[2016-09-03] MEDS: AZITHROMYCIN 500 MG in D5W 250 ML IV SCH (12:10)
[2016-09-03] MEDS: PROBIOTIC BLEND TAB PO SCH ×2 (12:10→16:58)
[2016-09-03] MEDS: METOPROLOL (TOPROL-XL) 50 MG TAB PO SCH (19:40)
[2016-09-03] MEDS: INSULIN DETEMIR 100 UNITS/ML PEN SQ SCH (19:42)
[2016-09-04] MEDS: LEVALBUTEROL 0.63 MG IN 3 ML NEB NEB SCH ×3 (01:45→13:16)
[2016-09-04] MEDS: ACETAMINOPHEN 325 MG/TAB TABLET PO PRN (02:45)
[2016-09-04] MEDS: GLIMEPIRIDE 4 MG TAB PO SCH (05:07)
[2016-09-04] MEDS: PANTOPRAZOLE 40 MG TAB PO SCH (05:08)
[2016-09-04] MEDS: REGULAR INSULIN 100 UNITS/ML - 3 ML VIAL SQ SCH (05:09)
[2016-09-04] MEDS: METHYLPREDNISOLONE 40 MG/1 ML VIAL IV SCH (05:11)
[2016-09-04 05:15] LABS: MPV 8.6 fL (7.4-10.4)
[2016-09-04 05:30] LABS: BLOOD UREA NITROGEN 56 MG/DL (7-17); CALCIUM 9.6 MG/DL (8.4-10.2); CALCULATED OSMOLALITY 283 MOs/Kg (270-290); CHLORIDE 92 mEq/L (98-107); GLUCOSE 219 MG/DL (70-99); SODIUM LEVEL 135 mEq/L (137-146)
[2016-09-04] MEDS: CLOPIDOGREL 75 MG TAB PO SCH (07:44)
[2016-09-04] MEDS: ATORVASTATIN 80 MG TAB PO SCH (07:44)
[2016-09-04] MEDS: FUROSEMIDE 80 MG TAB PO SCH (07:44)
[2016-09-04] MEDS: RIVAROXABAN 10 MG TAB PO SCH (07:45)
[2016-09-04] MEDS: ESCITALOPRAM OXALATE 10 MG TAB PO SCH (07:45)
[2016-09-04] MEDS: LEVOTHYROXINE 25 MCG (0.025 MG) TAB PO SCH (07:45)
[2016-09-04] MEDS: MAGIC MOUTHWASH 180 ML ORAL SUSP PO SCH (07:45)
[2016-09-04] MEDS: LISINOPRIL 2.5 MG TAB PO SCH (07:46)
[2016-09-04 08:15] VITALS: BP 141/78; PULSE 79; TEMP 98.1
--- NOTE | 2016-09-04 08:20 | DIRPT ---
CLINICAL DATA: Pneumonia, congestive heart failure. EXAM: CHEST 2 VIEW COMPARISON: August 29, 2016. FINDINGS: Stable cardiomediastinal silhouette. Sternotomy wires are noted. No pneumothorax or pleural effusion is noted. Atherosclerosis of descending thoracic aorta is noted. Left lung opacity noted on prior exam has resolved. No acute pulmonary disease is noted. Bony thorax is unremarkable. IMPRESSION: No active cardiopulmonary disease. Electronically Signed By: Harmeet Carlson Jr, M.D. On: 09/04/2016 08:18
[2016-09-04] MEDS: CEFTRIAXONE 1 GM in D5W 100 ML IV SCH (11:04)
--- NOTE | 2016-09-04 11:14 | PCM.DCS92 ---
[id number] on Admission: Yes Comment: Bilat lower pneumonia. Continue roceph zithro. Patient still hypoxemic. (2) Chronic kidney disease Chronic N18.9 - CHRONIC KIDNEY DISEASE, UNSPECIFIED Present on Admission: Yes stage 2 (mild) N18.2 - Chronic kidney disease, stage 2 (mild) Comment: Monitor renal function avoid any nephrotoxins (3) Coronary artery disease Chronic I25.10 - ATHSCL HEART DISEASE OF [place] CORONARY ARTERY W/O ANG PCTRS Present on Admission: Yes [place] artery [place] heart without angina I25.10 - Atherosclerotic heart disease of [place] coronary artery without angina pectoris (4) Diabetes mellitus type 2, uncontrolled Chronic E11.65 - TYPE 2 DIABETES MELLITUS WITH HYPERGLYCEMIA Present on Admission: Yes D D D P D with assisted use bilateral C Comment: Sliding scale insulin therapy in addition to the multiple other medication she is taking for glycemic control. (5) Diastolic CHF Chronic I50.30 - UNSPECIFIED DIASTOLIC (CONGESTIVE) HEART FAILURE Present on Admission: Yes acute I50.31 - Acute diastolic (congestive) heart failure Comment: Echocardiogram done 2012 showed ejection fraction 55% but now her BNP is over 3500. I have switched to p.o. Lasix to IV. as her chest x-ray did show evidence of interstitial edema. (6) Hypertension Chronic I10 - ESSENTIAL (PRIMARY) HYPERTENSION Present on Admission: Yes essential hypertension I10 - Essential (primary) hypertension Comment: Medications ordered for this. (7) Atrial fibrillation Chronic I48.91 - UNSPECIFIED ATRIAL FIBRILLATION Present on Admission: Yes chronic I48.2 - Chronic atrial fibrillation Comment: Currently rate controlled. Plan: Continue metoprolol. Continue Xarelto. Discharge Disposition: Discharge w/ Home Health Discharge Condition: Fair Cognitive Discharge Status: Unimpaired (I really) Fuctional Discharge Status: Walker Assistance Physician Follow up/Referrals: Jennifer Hoskins MD [Staff Physician] - 09/10/16 11:00 am ( ) Home Medications / New Prescriptions: New Azithromycin [Zithromax Tri-Jasiel] 500 mg PO DAILY #3 tablet Cefdinir [Omnicef] 300 mg PO BID #10 capsule Insulin Detemir [Levemir] 20 units SQ HS #1 bot Prednisone [Sterapred DS 10 mg/12 day pack] 48 tab PO DIR #1 pack Probiotic Blend [Sara Q] 1 tab PO BIDLS #20 tablet Continue Glimepiride 4 mg PO DAILY Pantoprazole Sodium [Protonix] 40 mg PO DAILY Levothyroxine Sodium 25 mcg PO DAILY Metoprolol Succinate 50 mg PO QHS Furosemide [Lasix] 80 mg PO BID Rivaroxaban [Xarelto] 15 mg PO DAILY Lisinopril 2.5 mg PO DAILY Escitalopram Oxalate [Lexapro] 10 mg PO DAILY Clopidogrel Bisulfate [Plavix] 75 mg PO DAILY Atorvastatin Calcium 80 mg PO DAILY No Action Nitrofurantoin [Macrobid] 100 mg PO BID #10 cap Discharge Home Medication List Atorvastatin Calcium 80 mg PO DAILY 08/30/16 [History Confirmed 08/30/16 Last Taken 08/29/16] Clopidogrel Bisulfate [Plavix] 75 mg PO DAILY 08/30/16 [History Confirmed Last Taken 08/29/16] Escitalopram Oxalate [Lexapro] 10 mg PO DAILY 08/30/16 [History Confirmed Last Taken 08/29/16] Furosemide [Lasix] 80 mg PO BID 08/30/16 [History Confirmed 08/30/16 Last Taken 08/29/16] Glimepiride 4 mg PO DAILY 08/30/16 [History Confirmed 08/30/16 Last Taken ] Levothyroxine Sodium 25 mcg PO DAILY 08/30/16 [History Confirmed 08/30/16 Last Taken 08/29/16] Lisinopril 2.5 mg PO DAILY 08/30/16 [History Confirmed 08/30/16 Last Taken 08/29] Metoprolol Succinate 50 mg PO QHS 08/30/16 [History Confirmed 08/30/16 Last Taken 08/29/16] Pantoprazole Sodium [Protonix] 40 mg PO DAILY 08/30/16 [History Confirmed Last Taken 08/29/16] Rivaroxaban [Xarelto] 15 mg PO DAILY 08/30/16 [History Confirmed 08/30/16 Last Taken 08/29/16] Azithromycin [Zithromax Tri-Jasiel] 500 mg PO DAILY #3 tablet 09/04/16 [Rx Last Taken Unknown] Cefdinir [Omnicef] 300 mg PO BID #10 capsule 09/04/16 [Rx Last Taken Unknown] Insulin Detemir [Levemir] 20 units SQ HS #1 bot 09/04/16 [Rx Last Taken Unknown] Prednisone [Sterapred DS 10 mg/12 day pack] 48 tab PO DIR #1 pack 09/04/16 [ Rx Last Taken Unknown] Probiotic Blend [Sara Q] 1 tab PO BIDLS #20 tablet 09/04/16 [Rx Last Taken Unknown] 09/04/16 04:35 09/04/16 04:35 Laboratory Results - last 24 hr 09/03/16 09/03/16 09/03/16 13:41 14:08 15:37 WBC RBC Hgb Hct MCV MCH MCHC RDW Plt Count MPV Sodium Potassium Chloride Carbon Dioxide Anion Gap BUN Creatinine Estimated GFR (MDRD) Glucose POC Capillary Glucose 391 H 408 H* 325 H Calculated Osmolality Calcium 09/03/16 09/03/16 09/04/16 18:31 19:30 04:35 WBC RBC Hgb Hct MCV MCH MCHC RDW Plt Count MPV Sodium 135 L Potassium 3.8 Chloride 92 L Carbon Dioxide 31 Anion Gap 16 BUN 56 H Creatinine 1.30 H Estimated GFR (MDRD) 40 L Glucose 219 H POC Capillary Glucose 243 H 217 H Calculated Osmolality 283 Calcium 9.6 09/04/16 09/04/16 04:35 05:03 WBC 12.5 H RBC 3.74 L Hgb 11.2 L Hct 34.6 L MCV 92 MCH 29.9 MCHC 32.4 L RDW 15.5 H Plt Count 272 MPV 8.6 Sodium Potassium Chloride Carbon Dioxide Anion Gap BUN Creatinine Estimated GFR (MDRD) Glucose POC Capillary Glucose 213 H Calculated Osmolality Calcium O2 Device: Room Air Diet at Discharge: Cardiac, Heart Healthy, Diabetic, 1800 Calorie Activity: As Tolerated - DC Summary Notes HPI/Notes: The patient is a 76 yo woman with atrial fibrillation who presents with shortness of breath. She was recently in the hospital under observation about 2 weeks ago due to chest pain; she was ruled out for VT and had a negative stress test. She does not have any chest pain now. Onset: a few days ago. Duration: intermittent. Character: can't get a good breath. Alleviated by: Nothing. Exacerbated by: Nothing. Associated Symptoms: Cough productive of white sputum. Wheezing. Had chills but no fever. No diaphoresis. Patient reports difficulty walking due to generalized weakness in legs. No other symptoms. Treatments: none at home except usual medications. Hospital Course Note:: Discharge summary on patient named WOLF BARONE admitted to [facility] on 08/30/16 by Mateo Lloyd MD. Date of discharge is 2016. She was admitted with left-sided pneumonia atrial fib and treated with Zosyn with improvement in her symptomatology and resolution of her infiltrate she was ready to go home 09/04/2016. Her creatinine dropped from 1.5 to 1.3 during hospitalization and she was continued on her previous medications. Lasix was given to her for fluid and feeling much better at time of discharge she was ready go home. Follow up with primary care provider Dr. Hoskins be necessary within the next 2 weeks. CC: Dr. Aidee Robles Total Time: 41 min Code: 14563 (>30min.) - Physical Exam Vital Signs: Last Vital Signs Temp 98.1 F 09/04/16 10:23 Pulse 79 09/04/16 10:23 Resp 19 09/04/16 10:23 BP 141/78 09/04/16 10:23 Pulse Ox 94 09/04/16 08:00 Oxygen Pulse Oxygen Saturation 94 O2 Device Room Air Oxygen Flow Rate 2 Fraction of Inspired Oxygen ( FIO2) Constitutional: Alert (Awake), Distress (M ILD) Oriented to: Time, Person, Place - HEENT Head: Normal ( normocephalic) Eye: Normal (PERRL, EOMI, Sclera white) Oropharynx: Normal (Pharynx:Moist without exudate,Gums-no swelling) Tympanic Membrane: Normal ENT EAC: Normal TMJ: Normal Nose: No Symptoms Reported (septum midline) - Respiratory/Cardiovascular Respiratory: Diminished. negative: Rales, Rhonchi, Wheezes Cardiovascular: Irregular. negative: Bradycardia, Tachycardia - GI Auscultation: Normal (NABS) Palpation: Normal (Soft,No rebound or guarding, non distended) Tenderness: Non tender Varela's Sign: Negative - Musculoskeletal Back: Normal (Non-Tender) Extremities: Normal (Normal tone, Pulses 2+ No cyanosis or edema, FROM) - Integumentary Skin: Normal (Warm dry no rashes) Lymphatics: Normal (no adenopathy) - Neurologic Memory Impaired: Normal Motor Function: Normal (Motor 5/5 throughout.Normal tone, Pulses 2+ No cyanosis or edema, FROM) Cranial Nerve: Normal (CN II-XII intact sensation, strength 5/5) Cerebellar: Normal Mood Description: Normal Thought: Coherent Perception: Normal
--- NOTE | 2016-09-05 12:47 | CAPUEKG ---
[place], [place] Test Date: 2016-09-02 Pat Name: WOLF BARONE Department: Room: 428 Gender: Female Block Cutter: : Requested By: Order Number: Reading MD: Harinder Rodriges Measurements Intervals [place] Rate: 84 P: MN: QRS: 2 QRSD: 92 T: 1 QT: 416 QTc: 491 Interpretive Statements Atrial fibrillation Inferior infarct, age undetermined No change from prior tracing.of Aug 30 Abnormal ECG Electronically Signed On 09-05-16 12:46:56 EST by Harinder Rodriges <[id number] [id number]
== END 2016-09-04 14:42 | disposition home health service (06) | DRG 193 ==
LOC: ED 23:53 → ICU 08-30 01:59 → PCU 08-30 21:26
PROVIDERS: ADMIT Internal Medicine; ATTEND Internal Medicine
PROC: 039C3ZZ Drainage of Left Radial Artery, Percutaneous Approach (ICD-10-PCS; principal; 2016-08-30)
DX: J15.9 Unspecified bacterial pneumonia (principal); I50.31 Acute diastolic (congestive) heart failure; I42.9 Cardiomyopathy, unspecified; E11.65 Type 2 diabetes mellitus with hyperglycemia; J44.0 Chronic obstructive pulmonary disease with (acute) lower respiratory infection; I25.810 Atherosclerosis of coronary artery bypass graft(s) without angina pectoris; J44.1 Chronic obstructive pulmonary disease with (acute) exacerbation; I12.9 Hypertensive chronic kidney disease with stage 1 through stage 4 chronic kidney disease, or unspecified chronic kidney disease; N18.2 Chronic kidney disease, stage 2 (mild); I48.2 Chronic atrial fibrillation; I25.2 Old myocardial infarction; Z95.1 Presence of aortocoronary bypass graft; I34.0 Nonrheumatic mitral (valve) insufficiency; J45.909 Unspecified asthma, uncomplicated; Z85.828 Personal history of other malignant neoplasm of skin; E05.90 Thyrotoxicosis, unspecified without thyrotoxic crisis or storm; Z86.73 Personal history of transient ischemic attack (TIA), and cerebral infarction without residual deficits; F41.8 Other specified anxiety disorders; Z88.1 Allergy status to other antibiotic agents; Z88.5 Allergy status to narcotic agent; Z88.2 Allergy status to sulfonamides; Z88.8 Allergy status to other drugs, medicaments and biological substances; Z79.899 Other long term (current) drug therapy; Z79.4 Long term (current) use of insulin; Z87.891 Personal history of nicotine dependence; R09.02 Hypoxemia
CPT/HCPCS: 36415; 36600; 71020; 80048; 80053; 82803; 82962; 83605; 83735; 83880; 84484; 85025; 85027; 85610; 85730; 87040; 87086; 87641; 93005; 94640; 96365; 96372; 97162; 98960; 99284; J0456; J0696; J2543; J2920; J2930; J3490; J7060; J7070; J7614; J7620

== ENCOUNTER 2016-09-19 05:05 | Emergency (ER) | payer MEDICARE ==
[2016-09-19 05:18] VITALS: BMI 34.1
--- NOTE | 2016-09-19 05:22 | EDPRACDOC ---
[id number] Mode of Arrival: Ambulance - History of Present Illness HPI: PT PRESENTS WITH GENERALIZED WEAKNESS PROGRESSING OVER THE LAST FEW DAYS WITH INABILITY TO STAND FROM THE TOILET THIS MORNING. <Epifanio Verma - Last Filed: 09/19/16 22:11> - General Information Stated Complaint: WEAKNESS Time Seen by Provider: 09/19/16 05:10 Home Medications: Home Medications Atorvastatin Calcium 80 mg PO DAILY 08/30/16 Clopidogrel Bisulfate [Plavix] 75 mg PO DAILY 08/30/16 Escitalopram Oxalate [Lexapro] 10 mg PO DAILY 08/30/16 Furosemide [Lasix] 80 mg PO BID 08/30/16 Glimepiride 4 mg PO DAILY 08/30/16 Levothyroxine Sodium 25 mcg PO DAILY 08/30/16 Lisinopril 2.5 mg PO DAILY 08/30/16 Metoprolol Succinate 50 mg PO QHS 08/30/16 Pantoprazole Sodium [Protonix] 40 mg PO DAILY 08/30/16 Rivaroxaban [Xarelto] 15 mg PO DAILY 08/30/16 Azithromycin [Zithromax Tri-Jasiel] 500 mg PO DAILY #3 tablet 09/04/16 Cefdinir [Omnicef] 300 mg PO BID #10 capsule 09/04/16 Insulin Detemir [Levemir] 20 units SQ HS #1 bot 09/04/16 Prednisone [Sterapred DS 10 mg/12 day pack] 48 tab PO DIR #1 pack 09/04/16 Probiotic Blend [Sara Q] 1 tab PO BIDLS #20 tablet 09/04/16 Nitrofurantoin [Macrobid] 100 mg PO BID #10 cap 09/19/16 Allergies/Adverse Reactions: Allergies Allergy/AdvReac Type Severity Reaction Status Date / Time cephalexin monohydrate Allergy Unknown/See Verified 09/19/16 05:18 [From Keflex] Comments codeine Allergy Itching Verified 09/19/16 05:18 moxifloxacin HCl Allergy Anaphylaxis Verified 09/19/16 05:18 [From Avelox] * Sulfa (Sulfonamide Allergy Unknown Verified 09/19/16 05:18 Antibiotics) sulfamethoxazole Allergy Unknown Verified 09/19/16 05:18 [From Bactrim] trimethoprim Allergy Unknown/See Verified 09/19/16 05:18 Comments ED Past Medical History - History Reviewed Yes Nurses notes reviewed and agree except as marked - Patient Medical History Neurological History: Reports: Cerebrovascular Accident (May 2013 involving right MCA territory), Seizures. Denies: Dementia, Guillian-Ledbetter Syndrome, Parkinson's, Multiple Sclerosis Cardiac History: Reports: Coronary Artery Disease, Atrial Fibrillation (Chronic chads 2 score equals 7. On Xarelto.), Hypertension, Congestive Heart Failure ( ECHO 07/2015: EF 35%. Systolic. Also depressed RV function.), Heart Attack, Cardiac Catheterization, CABG (2013 1 vessel saphenous vein graft and repair LV rupture), Hypercholesterolemia, Cardiomyopathy (and elevated pulmonary artery pressure at 36 mmHg.), Valvular Heart Disease (Moderate Mitral regurgitation.). Denies: Pacemaker, Syncope Respiratory History: Reports: Asthma, COPD, Pneumonia. Denies: Emphysema, Pulmonary Embolism GI/ History: Reports: Renal Disease (CKD. Baseline Cr 1.2 to 1.7.), Renal Failure, Urinary Tract Infection, Gastroesophageal Reflux. Denies: Kidney Stones, Ulcer, Diverticulosis, Pancreatitis Musculoskeletal History: Reports: Arthritis. Denies: Gout Psychological History: Reports: Anxiety. Denies: Depression, Bipolar Disorder, Substance Use Disorder Systemic History: Reports: Cancer (SKIN), Anemia, Diabetes (Type 2), Hyperthyroidism. Denies: Hypothyroidism Surgical History: Reports: Cholecystectomy, CABG (2013 1 vessel saphenous vein graft and repair LV rupture), Hysterectomy, Cardiac Catheterization, Tonsillectomy/Adnoidectomy. Denies: Angioplasty, Hernia Surgery - Family Medical History Reports: Hypertension, Diabetes (Mother and Father. MGM.), Cancer, Stroke, Cardiac Disorders (Mother: [place] early. Brother, sister, niece all with MIs.) - Social Medical History Smoking Status: Former smoker (Quit 2002. Previously 2-3 ppd. Started 31yo.) Social History: Denies: Substance Use Disorder Lives In: Home <Epifanio Verma - Last Filed: 09/19/16 22:11> EDM Review of Systems - Review of Systems ROS Negative Except as Marked: Yes All systems reviewed and were negative except as marked Constitutional: Fatigue, Weakness Respiratory: negative: Shortness of Breath Cardiovascular: negative: Chest Pain <Epifanio Verma - Last Filed: 09/19/16 22:11> - Physical Exam Last recorded Vital Signs: Last Vital Signs Temp 97.9 F 09/19/16 05:12 Pulse 111 01/21/17 05:12 Resp 20 09/19/16 05:12 BP 109/66 09/19/16 05:12 Pulse Ox 98 09/19/16 05:12 Oxygen Pulse Oxygen Saturation 98 O2 Device Oxygen Flow Rate Fraction of Inspired Oxygen ( FIO2) <Samir Nicholson - Last Filed: 09/19/16 08:46> - Physical Exam Constitutional: Alert Oriented to: Time, Person, Place Last recorded Vital Signs: Oxygen Pulse Oxygen Saturation O2 Device Oxygen Flow Rate Fraction of Inspired Oxygen ( FIO2) - HEENT Head: negative: Deformity, Laceration Eye Exam: negative: Conjunctival Injection, Pale Conjunctiva Oropharynx: negative: Membranes Dry Neck: negative: Limited ROM - Respiratory/Cardiovascular Respiratory: negative: Accessory Muscle Use, Retractions, Tachypnea Cardiovascular: Tachycardia. negative: Bradycardia, Irregular - GI Auscultation: Normal Palpation: Normal Tenderness: Non tender - Musculoskeletal Extremities: Radial Pulse (PALPABLE) - Integumentary Skin: Warm, Dry. negative: Rash - Neurologic Memory Impaired: Normal Motor Function: Normal Mood Description: Anxious, Appropriate Thought: Coherent Perception: Normal <Epifanio Verma - Last Filed: 09/19/16 22:11> - Results 09/19/16 05:12 09/19/16 05:12 WBC 10.0 xk/uL (3.8-10.8) 09/19/16 05:12 RBC 4.16 xM/uL (4.20-5.40) L 09/19/16 05:12 Hgb 12.7 g/dL (12.0-16.0) 09/19/16 05:12 Hct 39.3 % (36-47) 09/19/16 05:12 MCV 94 fL (81-99) 09/19/16 05:12 MCH 30.6 pg (27-32) 09/19/16 05:12 MCHC 32.4 g/dl (33-36) L 09/19/16 05:12 RDW 15.6 % (11.5-14.5) H 09/19/16 05:12 Plt Count 244 xk/uL (130-400) 09/19/16 05:12 MPV 8.6 fL (7.4-10.4) 09/19/16 05:12 Neut % (Auto) 63.5 % (45-76) 09/19/16 05:12 Lymph % (Auto) 26.8 % (17-44) 09/19/16 05:12 [place] % (Auto) 7.6 % (3-10) 09/19/16 05:12 Eos % (Auto) 1.6 % (0-5) 09/19/16 05:12 Baso % (Auto) 0.5 % (0-2) 09/19/16 05:12 Absolute Neuts (auto) 6.30 xk/uL (1.7-8.2) 09/19/16 05:12 Absolute Lymphs (auto) 2.60 xk/uL (0.65-4.75) 09/19/16 05:12 PT 12.9 SEC (9.2-11.2) H 09/19/16 05:12 INR 1.3 09/19/16 05:12 APTT 24.7 SEC (22-35) 09/19/16 05:12 Sodium 132 mEq/L (137-146) L 09/19/16 05:12 Potassium 4.1 mEq/L (3.5-5.1) 09/19/16 05:12 Chloride 97 mEq/L (98-107) L 09/19/16 05:12 Carbon Dioxide 26 mMOL/L (22-33) 09/19/16 05:12 Anion Gap 13 mEq/L (8-16) 09/19/16 05:12 BUN 56 MG/DL (7-17) H 09/19/16 05:12 Creatinine 1.50 MG/DL (0.52-1.04) H 09/19/16 05:12 Estimated GFR (MDRD) 34 mL/min (>=60) L 09/19/16 05:12 Glucose 337 MG/DL (70-99) H 09/19/16 05:12 Calculated Osmolality 284 MOs/Kg (270-290) 09/19/16 05:12 Calcium 8.7 MG/DL (8.4-10.2) 09/19/16 05:12 Corrected Calcium 9.5 MG/DL (8.4-10.2) 09/19/16 05:12 Total Bilirubin 0.7 MG/DL (0.2-1.3) 09/19/16 05:12 AST 18 IU/L (14-36) 09/19/16 05:12 ALT 29 IU/L (9-52) 09/19/16 05:12 Alkaline Phosphatase 63 IU/L (55-165) 09/19/16 05:12 Troponin I 0.03 ng/mL (<.04) 09/19/16 05:12 Total Protein 6.1 G/DL (6.3-8.2) L 09/19/16 05:12 Albumin 3.2 G/DL (3.5-5.0) L 09/19/16 05:12 Urine Color Yellow 09/19/16 07:35 Urine Clarity Hazy 09/19/16 07:35 Urine pH 5.0 (5.0-8.0) 09/19/16 07:35 Ur Specific [place] 1.010 (1.003-1.035) 09/19/16 07:35 Urine Protein Neg (NEG/TRACE) 09/19/16 07:35 Urine Glucose (UA) 2+ (NEGATIVE) H 09/19/16 07:35 Urine Ketones Neg (NEGATIVE) 09/19/16 07:35 Urine Occult Blood Trace (NEG/TRACE) 09/19/16 07:35 Urine Nitrite Neg (NEGATIVE) 09/19/16 07:35 Urine Bilirubin Neg (NEGATIVE) 09/19/16 07:35 Urine Urobilinogen 0.2 MG/DL (0-1) 09/19/16 07:35 Ur Leukocyte Esterase 2+ (NEGATIVE) H 09/19/16 07:35 Urine RBC 0-2 (0-5) 09/19/16 07:35 Urine WBC Tntc (0-5) H 09/19/16 07:35 Urine WBC Clumps Present (NONE) H 09/19/16 07:35 Ur Epithelial Cells Occ 09/19/16 07:35 Urine Bacteria 3+ (NEG/FEW) H 09/19/16 07:35 Lab Results 09/19/16 09/19/16 09/19/16 07:35 05:12 05:12 WBC 10.0 RBC 4.16 L Hgb 12.7 Hct 39.3 MCV 94 MCH 30.6 MCHC 32.4 L RDW 15.6 H Plt Count 244 MPV 8.6 Neut % (Auto) 63.5 Lymph % (Auto) 26.8 [place] % (Auto) 7.6 Eos % (Auto) 1.6 Baso % (Auto) 0.5 Absolute Neuts (auto) 6.30 Absolute Lymphs (auto) 2.60 PT 12.9 H INR 1.3 APTT 24.7 Sodium Potassium Chloride Carbon Dioxide Anion Gap BUN Creatinine Estimated GFR (MDRD) Glucose Calculated Osmolality Calcium Corrected Calcium Total Bilirubin AST ALT Alkaline Phosphatase Troponin I Total Protein Albumin Urine Color Yellow Urine Clarity Hazy Urine pH 5.0 Ur Specific [place] 1.010 Urine Protein Neg Urine Glucose (UA) 2+ H Urine Ketones Neg Urine Occult Blood Trace Urine Nitrite Neg Urine Bilirubin Neg Urine Urobilinogen 0.2 Ur Leukocyte Esterase 2+ H Urine RBC 0-2 Urine WBC Tntc H Urine WBC Clumps Present H Ur Epithelial Cells Occ Urine Bacteria 3+ H 09/19/16 05:12 WBC RBC Hgb Hct MCV MCH MCHC RDW Plt Count MPV Neut % (Auto) Lymph % (Auto) [place] % (Auto) Eos % (Auto) Baso % (Auto) Absolute Neuts (auto) Absolute Lymphs (auto) PT INR APTT Sodium 132 L Potassium 4.1 Chloride 97 L Carbon Dioxide 26 Anion Gap 13 BUN 56 H Creatinine 1.50 H Estimated GFR (MDRD) 34 L Glucose 337 H Calculated Osmolality 284 Calcium 8.7 Corrected Calcium 9.5 Total Bilirubin 0.7 AST 18 ALT 29 Alkaline Phosphatase 63 Troponin I 0.03 Total Protein 6.1 L Albumin 3.2 L Urine Color Urine Clarity Urine pH Ur Specific [place] Urine Protein Urine Glucose (UA) Urine Ketones Urine Occult Blood Urine Nitrite Urine Bilirubin Urine Urobilinogen Ur Leukocyte Esterase Urine RBC Urine WBC Urine WBC Clumps Ur Epithelial Cells Urine Bacteria <Samir Nicholson - Last Filed: 09/19/16 08:46> - Results 09/19/16 05:12 09/19/16 05:12 - EKG EKG #1 EKG Time: 05:13 -: Yes EKG interpreted by me Rate: bpm: 107 Rhythm: ST ST: Nonsp <Epifanio Verma - Last Filed: 09/19/16 22:11> Decision Time to Discharge: 08:46 - Departure Yes I personally saw and evaluated the patient. Disposition: Home Education/Counseling Given To: Patient Education/Counseling Given Regarding: Diagnosis <Samir Nicholson - Last Filed: 09/19/16 08:46> <Epifanio Verma - Last Filed: 09/19/16 22:11> - Departure Condition: Stable Final Diagnosis: Weakness UTI (urinary tract infection) Qualifiers: Urinary tract infection type: acute cystitis Hematuria presence: without hematuria Qualified Code(s): N30.00 - Acute cystitis without hematuria Instructions: Urinary Tract Infection in Women (ED) Referrals: Erin Lofton MD [Primary Care Provider] - One Week Prescriptions: Nitrofurantoin [Macrobid] 100 mg PO BID #10 cap
[2016-09-19 05:35] LABS: AUTOMATED BASOPHIL 0.5 % (0-2); AUTOMATED EOSINOPHIL 1.6 % (0-5); AUTOMATED LYMPH 26.8 % (17-44); AUTOMATED MONOCYTE 7.6 % (3-10); AUTOMATED NEUTROPHIL 63.5 % (45-76); MPV 8.6 fL (7.4-10.4)
[2016-09-19 05:45] LABS: BLOOD UREA NITROGEN 56 MG/DL (7-17); CALC CORRECTED 9.5 MG/DL (8.4-10.2); CALCIUM 8.7 MG/DL (8.4-10.2); CALCULATED OSMOLALITY 284 MOs/Kg (270-290); CHLORIDE 97 mEq/L (98-107); GLUCOSE 337 MG/DL (70-99); SODIUM LEVEL 132 mEq/L (137-146); TOTAL PROTEIN 6.1 G/DL (6.3-8.2)
[2016-09-19 05:48] LABS: PARTIAL THROMB. TIME 24.7 SEC (22-35); PT-INR 1.3
--- NOTE | 2016-09-19 06:45 | DIRPT ---
CLINICAL DATA: Initial evaluation for acute weakness. EXAM: CHEST 2 VIEW COMPARISON: Prior study from 09/04/2016. FINDINGS: Median sternotomy wires underlying CABG markers noted, stable. Cardiomegaly is unchanged. Mediastinal silhouette within normal limits. Atheromatous plaque noted within the aortic arch. Lungs are normally inflated. No focal infiltrate, pulmonary edema, or pleural effusion. No pneumothorax. No acute osseous abnormality. IMPRESSION: No active cardiopulmonary disease. Electronically Signed By: Victor Hugo Lester M.D. On: 09/19/2016 06:42
[2016-09-19 07:47] LABS: LEUKOCYTES/URINE 2+ (NEGATIVE); NITRITE/URINE NEG (NEGATIVE); RBC/URINE 0-2 (0-5); URINE OCCULT BLOOD TRACE (NEG/TRACE); WBC/URINE TNTC (0-5)
[2016-09-19] MEDS ORDERED: NITROFURANTOIN 100 MG CAP PO ONE (08:06)
--- NOTE | 2016-09-19 08:26 | DIRPT ---
CLINICAL DATA: Recent fall with right hip pain, initial encounter EXAM: PELVIS - 1-2 VIEW COMPARISON: None. FINDINGS: Degenerative changes of the hip joints are noted bilaterally. No acute fracture or dislocation is seen. The pelvic ring is intact. No gross soft tissue abnormality is noted. IMPRESSION: No acute abnormality seen. Electronically Signed By: Roger Molina M.D. On: 09/19/2016 08:24
--- NOTE | 2016-09-19 08:44 | DIRPT ---
CLINICAL DATA: Weakness for 3 days EXAM: CT HEAD WITHOUT CONTRAST TECHNIQUE: Contiguous axial images were obtained from the base of the skull through the vertex without intravenous contrast. COMPARISON: 06/12/2015 FINDINGS: The bony calvarium is intact. Changes of prior left cerebellar infarct are noted medially. A right MCA infarct is also noted and stable from the prior exam. No findings to suggest acute hemorrhage, acute infarction or space-occupying mass lesion are noted. Mild atrophic changes are noted. 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 No acute abnormality noted. Electronically Signed By: Roger Molina M.D. On: 09/19/2016 08:42
[2016-09-19 08:53] VITALS: BP 112/71; PULSE 89; TEMP 98.4
== END 2016-09-19 10:15 | disposition home or self-care (01) ==
LOC: ED 05:05
DX: N30.00 Acute cystitis without hematuria (principal); R53.1 Weakness
CPT/HCPCS: 36415; 70450; 71020; 72170; 80053; 81001; 84484; 85025; 85610; 85730; 87040; 87077; 87086; 87186; 93005; 99283; A9270; J3490